=== PATIENT | male | born 1990 | race African-American/Black ===

== ENCOUNTER 2021-01-11 08:29 | Emergency (ER) | payer SELFPAY ==
[2021-01-11] MEDS ORDERED: Ketorolac 15 MG/ML SDV IVPUSH ONE (09:09)
[2021-01-11] MEDS ORDERED: Sodium Chloride 0.9% 10 ML Syringe FLUSH PRN ×2 (09:09→09:17)
--- NOTE | 2021-01-11 09:16 | EDM.PDOC ---
ED HPI GENERAL MEDICAL PROBLEM - General Chief Complaint: Flank Pain Stated Complaint: BLOOD IN URINE/RIGHT SIDE FLANK PAIN Time Seen by Provider: 01/11/21 09:06 - History of Present Illness INITIAL COMMENTS - FREE TEXT/NARRATIVE: Patient arrived to ED by private vehicle Onset of symptoms was 0230 this morning He awoke with pain in the right back/flank, and right mid abdomen He subsequently got up to the bathroom and had grossly bloody urine Endorses burning with urination, and urinary frequency Associated shaking/chills, for which he turned off his air conditioning and put on a hoodie sweatshirt Pain severity was rated 8/10, current pain severity 5/10 He has not taken anything for pain Right Flank Pain Score (Numeric/FACES): 8 - Related Data Allergies Allergy/AdvReac Type Severity Reaction Status Date / Time No Known Allergies Allergy Verified 01/11/21 08:44 Home Meds: Home Meds Ciprofloxacin [Ciprofloxacin HCl] 500 mg PO Q12H #20 tab 01/11/21 [Rx] Past Medical History - Past Health History Medical/Surgical History: Denies Medical/Surgical History Social & Family History - Tobacco Use Tobacco Use Status *Q: Never Tobacco User - Caffeine Use Caffeine Use: Reports: None - Recreational Drug Use Recreational Drug Use: No ED ROS GENERAL - Review of Systems Review Of Systems: See Below Free Text/Narrative/Comment: Constitutional - no fever; chills Eyes - no eye pain; no visual disturbance ENT - no rhinorrhea; no congestion; no epistaxis Cardiovascular - no chest pain Respiratory - no shortness of breath; no cough Gastrointestinal - abdominal pain; no nausea; no vomiting; no diarrhea; right flank pain Genitourinary - dysuria; hematuria; urinary frequency Musculoskeletal - no neck pain; no back pain; no extremity injury Neurological - no headache; no speech disturbance; no weakness ED EXAM, GENERAL - Physical Exam Exam: See Below Free Text/Narrative:: Constitutional - awake; alert; mild pain distress Head - no facial swelling or weakness Eyes - extra ocular motion intact; conjunctiva normal ENT - no nasal deformity; no epistaxis; normal phonation Neck - no swelling Respiratory - normal respiratory effort; no crackles or wheezing; no stridor Cardiovascular - regular rhythm; normal rate; S1; S2; grade 1/6 systolic murmur GI/Abdomen - normal bowel sounds; soft; mild tenderness right mid abdomen; no CVA tenderness; no rebound; no guarding; no mass Musculoskeletal - grossly normal strength and motion; no swelling or deformity Skin - warm; dry Neurologic - normal speech; no weakness Psychiatric - normal mood and affect; memory and attention normal Course - Vital Signs Text/Narrative:: . 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, possibility for kidney stone which had passed Possibility for kidney stone missed by CT was also discussed Presumptive treatment for possible UTI was prescribed Need for primary care and/or urology follow-up in regards to hematuria was emphasized Patient was felt to be stable for outpatient follow-up Return precautions were provided Last Recorded V/S: Last Vital Signs Temp 36.6 C 01/11/21 08:41 Pulse 97 01/11/21 08:41 Resp 16 01/11/21 08:41 BP 156/98 H 01/11/21 08:41 Pulse Ox 98 01/11/21 08:41 - Orders/Labs/Meds Labs: Laboratory Tests 01/11/21 01/11/21 01/11/21 Range/Units 08:50 09:30 09:30 WBC 11.60 H (4.23-9.07) K/mm3 RBC 5.57 (4.63-6.08) M/mm3 Hgb 14.9 (13.7-17.5) gm/dl Hct 45.2 (40.1-51.0) % MCV 81.1 (79.0-92.2) fl MCH 26.8 (25.7-32.2) pg MCHC 33.0 (32.2-35.5) g/dl RDW Std Deviation 41.6 (35.1-43.9) fL Plt Count 298 (163-337) K/mm3 MPV 9.6 (9.4-12.3) fl Neut % (Auto) 83.2 H (34.0-67.9) % Lymph % (Auto) 9.1 L (21.8-53.1) % [place] % (Auto) 7.2 (5.3-12.2) % Eos % (Auto) 0.2 L (0.8-7.0) Baso % (Auto) 0.1 (0.1-1.2) % Neut # (Auto) 9.66 H (1.78-5.38) K/mm3 Lymph # (Auto) 1.06 L (1.32-3.57) K/mm3 [place] # (Auto) 0.83 H (0.30-0.82) K/mm3 Eos # (Auto) 0.02 L (0.04-0.54) K/mm3 Baso # (Auto) 0.01 (0.01-0.08) K/mm3 Sodium 142 (136-145) mEq/L Potassium 3.7 (3.5-5.1) mEq/L Chloride 105 (98-107) mEq/L Carbon Dioxide 27 (21-32) mEq/L Anion Gap 13.7 (5-15) BUN 10 (7-18) mg/dL Creatinine 1.2 (0.7-1.3) mg/dL Est Cr Clr Drug Dosing 75.37 mL/min Estimated GFR (MDRD) > 60 (>60) mL/min BUN/Creatinine Ratio 8.3 L (14-18) Glucose 90 (70-99) mg/dL Calcium 8.9 (8.5-10.1) mg/dL Total Bilirubin 0.8 (0.2-1.0) mg/dL AST 14 L (15-37) U/L ALT 30 (16-63) U/L Alkaline Phosphatase 54 (46-116) U/L Total Protein 7.8 (6.4-8.2) g/dl Albumin 4.1 (3.4-5.0) g/dl Globulin 3.7 gm/dL Albumin/Globulin Ratio 1.1 (1-2) Urine Color [place] H (Yellow) Urine Appearance Cloudy H (Clear) Urine pH 8.5 H (5.0-8.0) Ur Specific [place] 1.020 (1.005-1.030) Urine Protein 2+ H (Negative) Urine Glucose (UA) Negative (Negative) Urine Ketones Negative (Negative) Urine Occult Blood 3+ H (Negative) Urine Nitrite Negative (Negative) Urine Bilirubin Negative (Negative) Urine Urobilinogen 0.2 (0.2-1.0) Ur Leukocyte Esterase 2+ H (Negative) Urine RBC Too numerous to cnt H (0-5) /hpf Urine WBC 75-100 H (0-5) /hpf Urine WBC Clumps Few (NOT SEEN) /hpf Ur Squamous Epith Cells Not seen (0-5) /hpf Urine Bacteria Many H (FEW) /hpf Urine Mucus Few (FEW) /hpf Meds: Medications Discontinued Medications Generic Name Dose Route Start Last Admin Trade Name Franklynq PRN Reason Stop Dose Admin Iopamidol 100 ml 01/11/21 09:17 01/11/21 09:53 Iopamidol 612 Mg/Ml 100 Ml Bottle IVPUSH 01/11/21 09:18 100 ml ONETIME ONE Administration Ketorolac Tromethamine 15 mg 01/11/21 09:09 01/11/21 09:29 Ketorolac 15 Mg/Ml Sdv IVPUSH 01/11/21 09:10 15 mg ONETIME ONE Administration Sodium Chloride 10 ml 01/11/21 09:09 01/11/21 09:29 Sodium Chloride 0.9% 10 Ml Syringe FLUSH 10 ml ASDIRECTED PRN Administration Keep Vein Open Sodium Chloride 10 ml 01/11/21 09:17 01/11/21 09:53 Sodium Chloride 0.9% 10 Ml Syringe FLUSH 10 ml ONETIME PRN Administration IV FLUSH - Radiology Interpretation Free Text/Narrative:: CT abdomen/pelvis, IV contrast, radiology interpretation: 1. Slight increase stool within the colon 2. No additional abnormality is identified on CT study of the abdomen and pelvis. No findings of pyelonephritis are seen. Departure - Departure Time of Disposition: 11:41 Disposition: Home, Self-Care 01 Clinical Impression: Hematuria, Flank pain - Discharge Information *PRESCRIPTION DRUG MONITORING PROGRAM REVIEWED*: Not Applicable *COPY OF PRESCRIPTION DRUG MONITORING REPORT IN PATIENT CARRIE: Not Applicable Prescriptions: Ciprofloxacin [Ciprofloxacin HCl] 500 mg PO Q12H #20 tab Instructions: Flank Pain, Adult, Hematuria, Adult Referrals: PCP,None [Primary Care Provider] - Forms: ED Department Discharge Additional Instructions: Your evaluation today did not confirm a kidney stone, though kidney stone cannot be excluded You are being treated for urinary tract infection as a suspected cause for your symptoms Urine culture is being performed to further confirm or exclude urinary infection Return if condition worsens May resume general activity and regular diet as tolerated Continue usual medications Take all Ciprofloxacin antibiotic as prescribed, until completed Strain all urine detect passage of possible kidney stone Follow-up with primary care and/or urology provider is recommended Call [facility] ([phone]) or [facility] ([phone]) for urology follow-up Sepsis Event Note (ED) - Evaluation Sepsis Screening Result: No Definite Risk
[2021-01-11] MEDS ORDERED: Iopamidol 612 MG/ML 100 ML Bottle IVPUSH ONE (09:17)
--- NOTE | 2021-01-11 10:15 | CT ---
CT abdomen and pelvis Technique: Multiple axial sections were obtained from above the dome of the diaphragm inferiorly through the pubic symphysis. Intravenous contrast was utilized. No oral contrast has been given. Delayed images were also obtained through the abdomen and pelvis. Reconstructed coronal and sagittal images were obtained. Comparison: No prior abdominal imaging is available. Findings: Visualized lung bases show nothing acute. Liver contains no focal parenchymal abnormality. Gallbladder contains no calcified gallstones. Pancreas is within normal limits. Adrenal glands show no nodule. Kidneys show symmetric contrast enhancement. No hydronephrosis or mass is seen within either kidney. Delayed images show no filling defects within the collecting systems. Contrast is noted within the left ureter. Slight artifact is noted within portions of the mid left ureter. Lesser contrast is noted within the right ureter. Contrast is seen within the bladder. Abdominal aorta shows no aneurysm. No retroperitoneal adenopathy or mesenteric abnormalities are seen. No pelvic mass or adenopathy is seen. Slight increased stool is seen throughout the colon. Appendix is seen which is normal in size. No free fluid or inflammatory change is appreciated. No bowel dilatation is appreciated. Bone window settings were reviewed which appear within normal limits for the patient's age. Impression: 1. Slight increased stool within the colon. 2. No additional abnormality is identified on CT study of the abdomen and pelvis. No findings of pyelonephritis are seen. Please correlate with physical exam and laboratory study. Diagnostic code #1
== END 2021-01-11 12:19 | disposition home or self-care (01) ==
LOC: JD.ED 08:29
DX: R10.9 Unspecified abdominal pain (principal); R31.9 Hematuria, unspecified
CPT/HCPCS: 36415; 74177; 80053; 81001; 85025; 87086; 87088; 87186; 96374; 99284; J1885; Q9967